=== PATIENT | female | born 2000 | race Caucasian/White ===

== ENCOUNTER 2021-02-15 22:07 | Outpatient (CLI) | payer BC, OTHER ==
[2021-03-04] MEDS ORDERED: IBUPROFEN800 MG PO (17:07)
[2021-03-04] MEDS ORDERED: DOCUSATE SODIU100 MG PO (17:07)
== END 2021-02-16 01:49 | disposition home or self-care (01) ==
LOC: GENOP 22:07
DX: O47.03 False labor before 37 completed weeks of gestation, third trimester (principal); O99.513 Diseases of the respiratory system complicating pregnancy, third trimester; J45.909 Unspecified asthma, uncomplicated; O99.353 Diseases of the nervous system complicating pregnancy, third trimester; G43.909 Migraine, unspecified, not intractable, without status migrainosus; Z88.7 Allergy status to serum and vaccine; Z3A.36 36 weeks gestation of pregnancy
CPT/HCPCS: 96360; 96361; G0463

== ENCOUNTER 2021-03-03 16:33 | Inpatient (IN) | payer BC, OTHER ==
[~2021-03-03] VITALS: Ht 157.5 cm; Wt 61.2 kg
[2021-03-03 17:31] LABS: HEMOGLOBIN 13.4 gm/dl (12.3-15.3); RED BLOOD COUNT 4.28 M/UL (4.00-5.10); WHITE BLOOD COUNT 9.9 K/UL (4.5-11.0)
[2021-03-04] MEDS ORDERED: DOCUSATE SODIU100 MG PO (17:07)
[2021-03-04] MEDS ORDERED: IBUPROFEN800 MG PO (17:07)
[2021-03-05 10:45] LABS: HEMOGLOBIN 12.1 gm/dl (12.3-15.3)
== END 2021-03-06 15:54 | disposition home or self-care (01) | DRG 807 ==
LOC: GENOP 16:33 → OB 16:33 → GENOP 03-04 17:05 → OB 03-04 17:07
PROVIDERS: Obstetrics & Gynecology; ADMIT Obstetrics & Gynecology
PROC: 10E0XZZ Delivery of Products of Conception, External Approach (ICD-10-PCS; principal; 2021-03-04)
PROC: 00HU33Z Insertion of Infusion Device into Spinal Canal, Percutaneous Approach (ICD-10-PCS; 2021-03-04)
PROC: 3E0R3BZ Introduction of Anesthetic Agent into Spinal Canal, Percutaneous Approach (ICD-10-PCS; 2021-03-04)
PROC: 10907ZC Drainage of Amniotic Fluid, Therapeutic from Products of Conception, Via Natural or Artificial Opening (ICD-10-PCS; 2021-03-04)
PROC: 4A1H7CZ Monitoring of Products of Conception, Cardiac Rate, Via Natural or Artificial Opening (ICD-10-PCS; 2021-03-04)
PROC: 0HQ9XZZ Repair Perineum Skin, External Approach (ICD-10-PCS; 2021-03-04)
PROC: 10H073Z Insertion of Monitoring Electrode into Products of Conception, Via Natural or Artificial Opening (ICD-10-PCS; 2021-03-04)
DX: O99.52 Diseases of the respiratory system complicating childbirth (principal); Z37.0 Single live birth; O77.0 Labor and delivery complicated by meconium in amniotic fluid; O99.354 Diseases of the nervous system complicating childbirth; J45.909 Unspecified asthma, uncomplicated; G43.909 Migraine, unspecified, not intractable, without status migrainosus; Z20.822 Contact with and (suspected) exposure to COVID-19; O99.344 Other mental disorders complicating childbirth; F32.9 Major depressive disorder, single episode, unspecified; F41.9 Anxiety disorder, unspecified; O70.0 First degree perineal laceration during delivery; Z3A.39 39 weeks gestation of pregnancy
CPT/HCPCS: 36415; 51702; 81001; 82800; 85014; 85018; 85025; 90715; C9113; J0595; J2405; J2590; J7120; U0002